=== PATIENT | male | born 1940 | race Caucasian/White ===

== ENCOUNTER 2019-12-08 09:39 | Observation (INO) | payer MEDICARE ==
--- NOTE | 2019-12-08 10:20 | CR ---
Chest: Portable view of the chest was obtained. Comparison: Prior chest x-ray of 06/09/13. Heart size is normal. Tortuous thoracic aorta is seen. Slight parenchymal density is noted within the right upper chest. Lungs otherwise are clear. Old healed right-sided rib fracture is noted. Scattered disc space narrowing and mild scoliosis is noted within the spine. Impression: 1. Slight parenchymal density within the right upper chest. This is most likely due to overlapping densities rather than actual parenchymal finding. 2. Other findings as noted above. Nothing acute is suspected. Diagnostic code #2 This report was dictated in MDT
--- NOTE | 2019-12-08 10:21 | EDM.PDOC ---
ED HPI GENERAL MEDICAL PROBLEM - General Chief Complaint: Syncope Time Seen by Provider: 12/08/19 10:23 Source of Information: Reports: Patient, Family History Limitations: Reports: No Limitations - History of Present Illness INITIAL COMMENTS - FREE TEXT/NARRATIVE: Patient is 79-year-old male with a history of dementia and "blood clots" presenting with chief complaint of syncopal episode. Patient is accompanied by who is the primary historian. Per the , the patient was walking in the house when he appeared to suddenly lose muscle tone. Patient fell forward and lightly struck his head against the wall. Patient's caught the patient to prevent a significant injury. This happened a second time although they were approaching the car. No major trauma on second episode. There is no noted seizure-like activity with any myoclonic jerks. The patient has not been sick at all recently. There is not been any vomiting or diarrhea. Patient is not prone to syncopal episodes. Patient not complaining of any chest pain or shortness of breath. Pmhx: Per chart and HPI Pshx: None Family Hx: noncontributory Smoking history? no Etoh use? none Drug use? none In addition to that documented in the HPI above, the additional ROS was obtained : Constitutional: Denies fevers or chills Eyes: Denies vision changes ENMT: Denies sore throat CV: Denies chest pain Resp: Denies SOB GI: Denies vomiting or diarrhea : Denies painful urination MSK: Per HPI Skin: Denies new rashes Neuro: Denies new numbness or tingling or weakness Endocrine: Denies unexpected weight loss Heme: Denies bleeding disorders I have reviewed the triage vital signs Const: Well nourished, well developed, appears stated age Eyes: Right eye with significant cataract, no conjunctival injection. Extraocular movements intact HENT: No evidence of head trauma. NCAT, Neck supple without meningismus CV: RRR, Warm, well-perfused extremities RESP: CTAB, Unlabored respiratory effort GI: soft, non-tender, non-distended, no masses MSK: Deformity with muscle wasting to right hand. No musculoskeletal injury noted Skin: Warm, dry. 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 Sensation and motor function of extremities intact. Psych: Appropriate mood and affect Assessment and plan: Patient is a 79-year-old male presenting with dementia and a syncopal episode x 2. Patient's ER course was unremarkable. Patient's vital signs within normal limits. Patient's neuro exam did not demonstrate any acute abnormalities. Patient's EKG demonstrated sinus rhythm with LVH but no ischemic changes. Patient had labs and CT performed. Differential diagnosis include cardiac syncope, seizure, vasovagal reaction, acute blood loss anemia from GI source. Patient's initial labs demonstrated elevation of his troponin at 0.077 however these down trended to 0.066 without any ischemic changes. Otherwise, there are no significant laboratory abnormalities. Patient CT of the head was negative for acute intracranial hemorrhage. Seizure is much less likely given the patient's age and history. Serial H&H did not demonstrate significant change. Cardiac syncope is much more likely given the elevation of his cardiac enzymes. No evidence of STEMI or NSTEMI. Patient was given aspirin. Cardiac monitoring did not demonstrate any acute changes. Per the patient's , the patient is DNR and DNI and I discussed with the her the benefits and risks of admission versus discharge. She prefer that the patient be observed to determine the etiology even if no specific intervention is done such as pacemaker, cardiac cath. She understands observation may not lead to any intervention. Patient is hemodynamically stable and will be placed in observation for further evaluation of syncope. - Related Data Allergies Allergy/AdvReac Type Severity Reaction Status Date / Time No Known Allergies Allergy Verified 12/08/19 09:48 Home Meds: Home Meds Enalapril Maleate 10 mg PO DAILY 08/21/14 [History] Memantine HCl [Namenda Xr] 28 mg PO DAILY 08/21/14 [History] Pantoprazole [ProTONIX Granules] 40 mg PO DAILY 08/21/14 [History] Warfarin [Coumadin] 4 mg PO DAILY 08/21/14 [History] traMADol [Ultram] 50 mg PO DAILY 08/21/14 [History] Warfarin [Coumadin] 6 mg PO DAILY 12/08/19 [History] Past Medical History HEENT History: Reports: None Cardiovascular History: Reports: Heart Murmur Respiratory History: Reports: None Gastrointestinal History: Reports: None Genitourinary History: Reports: None Musculoskeletal History: Reports: Arthritis Neurological History: Reports: None Psychiatric History: Reports: Dementia Endocrine/Metabolic History: Reports: None Hematologic History: Reports: None Immunologic History: Reports: None Oncologic (Cancer) History: Reports: None Dermatologic History: Reports: None - Infectious Disease History Infectious Disease History: Reports: None - Past Surgical History Head Surgeries/Procedures: Reports: None HEENT Surgical History: Reports: None Cardiovascular Surgical History: Reports: None Respiratory Surgical History: Reports: None GI Surgical History: Reports: None Male Surgical History: Reports: None Endocrine Surgical History: Reports: None Neurological Surgical History: Reports: None Musculoskeletal Surgical History: Reports: None Oncologic Surgical History: Reports: None Dermatological Surgical History: Reports: None Social & Family History - Family History Family Medical History: Noncontributory - Tobacco Use Smoking Status *Q: Former Smoker Used Tobacco, but Quit: Yes Month/Year Tobacco Last Used: 20 years - Caffeine Use Caffeine Use: Reports: None - Recreational Drug Use Recreational Drug Use: No ED ROS GENERAL - Review of Systems Review Of Systems: See Below - Physical Exam Exam: See Below Course - Vital Signs Last Recorded V/S: Last Vital Signs Temp 36.0 C L 12/08/19 09:41 Pulse 78 12/08/19 13:39 Resp 14 12/08/19 13:39 BP 123/70 12/08/19 13:39 Pulse Ox 95 12/08/19 13:39 - Orders/Labs/Meds Orders: Active Orders 24 hr Category Date Time Status Admission Status [Patient Status] [ADT] Stat ADT 12/08/19 14:04 Active EKG Documentation Completion [RC] STAT Care 12/08/19 09:44 Active EKG Documentation Completion [RC] STAT Care 12/08/19 10:48 Active Orthostatic Vital Signs [RC] ASDIRECTED Care 12/08/19 14:05 Active Sodium Chloride 0.9% [Normal Saline] 500 ml Med 12/08/19 11:30 Active IV .BOLUS Medication Orders Sodium Chloride (Normal Saline) 500 mls @ 1,000 mls/hr IV .BOLUS JOLENE Last Admin: 12/08/19 11:57 Dose: 1,000 mls/hr Labs: Laboratory Tests 12/08/19 12/08/19 12/08/19 Range/Units 09:52 09:52 09:52 WBC 5.12 (4.0-11.0) K/uL RBC 4.70 (4.50-5.90) M/uL Hgb 11.8 L (13.0-17.0) g/dL Hct 36.6 L (38.0-50.0) % MCV 77.9 L (80.0-98.0) fL MCH 25.1 L (27.0-32.0) pg MCHC 32.2 (31.0-37.0) g/dL RDW Std Deviation 47.2 (28.0-62.0) fl RDW Coeff of Omar 17 H (11.0-15.0) % Plt Count 142 L (150-400) K/uL MPV 9.90 (7.40-12.00) fL Neut % (Auto) 83.2 H (48.0-80.0) % Lymph % (Auto) 14.8 L (16.0-40.0) % Norton % (Auto) 1.8 (0.0-15.0) % Eos % (Auto) 0.0 (0.0-7.0) % Baso % (Auto) 0.2 (0.0-1.5) % Neut # (Auto) 4.3 (1.4-5.7) K/uL Lymph # (Auto) 0.8 (0.6-2.4) K/uL Norton # (Auto) 0.1 (0.0-0.8) K/uL Eos # (Auto) 0.0 (0.0-0.7) K/uL Baso # (Auto) 0.0 (0.0-0.1) K/uL Nucleated RBC % 0.0 /100WBC Nucleated RBCs # 0 K/uL INR 1.03 Sodium 133 L (136-148) mmol/L Potassium 4.0 (3.5-5.1) mmol/L Chloride 98 (98-107) mmol/L Carbon Dioxide 22.0 (21.0-32.0) mmol/L BUN 36 H (7.0-18.0) mg/dL Creatinine 2.3 H (0.8-1.3) mg/dL Est Cr Clr Drug Dosing 23.12 mL/min Estimated GFR (MDRD) 27.5 ml/min Glucose 144 H (74-106) mg/dL Calcium 8.7 (8.5-10.1) mg/dL Magnesium (1.8-2.4) mg/dL Total Bilirubin 0.5 (0.2-1.0) mg/dL AST 39 H (15-37) IU/L ALT 27 (14-63) IU/L Alkaline Phosphatase 98 (46-116) U/L Troponin I 0.077 H* (0.000-0.056) ng/mL Total Protein 7.2 (6.4-8.2) g/dL Albumin 2.8 L (3.4-5.0) g/dL Globulin 4.4 H (2.6-4.0) g/dL Albumin/Globulin Ratio 0.6 L (0.9-1.6) 12/08/19 12/08/19 12/08/19 Range/Units 09:52 12:00 12:00 WBC (4.0-11.0) K/uL RBC (4.50-5.90) M/uL Hgb 11.2 L (13.0-17.0) g/dL Hct 34.4 L (38.0-50.0) % MCV (80.0-98.0) fL MCH (27.0-32.0) pg MCHC (31.0-37.0) g/dL RDW Std Deviation (28.0-62.0) fl RDW Coeff of Omar (11.0-15.0) % Plt Count (150-400) K/uL MPV (7.40-12.00) fL Neut % (Auto) (48.0-80.0) % Lymph % (Auto) (16.0-40.0) % Norton % (Auto) (0.0-15.0) % Eos % (Auto) (0.0-7.0) % Baso % (Auto) (0.0-1.5) % Neut # (Auto) (1.4-5.7) K/uL Lymph # (Auto) (0.6-2.4) K/uL Norton # (Auto) (0.0-0.8) K/uL Eos # (Auto) (0.0-0.7) K/uL Baso # (Auto) (0.0-0.1) K/uL Nucleated RBC % /100WBC Nucleated RBCs # K/uL INR Sodium (136-148) mmol/L Potassium (3.5-5.1) mmol/L Chloride (98-107) mmol/L Carbon Dioxide (21.0-32.0) mmol/L BUN (7.0-18.0) mg/dL Creatinine (0.8-1.3) mg/dL Est Cr Clr Drug Dosing mL/min Estimated GFR (MDRD) ml/min Glucose (74-106) mg/dL Calcium (8.5-10.1) mg/dL Magnesium 2.0 (1.8-2.4) mg/dL Total Bilirubin (0.2-1.0) mg/dL AST (15-37) IU/L ALT (14-63) IU/L Alkaline Phosphatase (46-116) U/L Troponin I 0.066 H* (0.000-0.056) ng/mL Total Protein (6.4-8.2) g/dL Albumin (3.4-5.0) g/dL Globulin (2.6-4.0) g/dL Albumin/Globulin Ratio (0.9-1.6) Meds: Medications Generic Name Dose Route Start Last Admin Trade Name Freq PRN Reason Stop Dose Admin Sodium Chloride 500 mls @ 1,000 mls/hr 12/08/19 11:30 12/08/19 11:57 Normal Saline IV 1,000 mls/hr .BOLUS JOLENE Administration Departure - Departure Time of Disposition: 14:14 Disposition: Refer to Observation Clinical Impression: Syncope - Discharge Information Referrals: Vladimir Pfeiffer MD [Primary Care Provider] - Forms: ED Department Discharge Sepsis Event Note - Evaluation Sepsis Screening Result: No Definite Risk - Focused Exam Vital Signs: Vital Signs Temp Pulse Resp BP Pulse Ox 12/08/19 13:39 78 14 123/70 95 12/08/19 12:43 76 20 114/67 98 12/08/19 09:41 36.0 C L 81 18 121/69 96 Date Exam was Performed: 12/08/19 Time Exam was Performed: 14:09 - My Orders Last 24 Hours: My Active Orders 12/08/19 09:44 EKG Documentation Completion [RC] STAT 12/08/19 10:48 EKG Documentation Completion [RC] STAT 12/08/19 11:30 Sodium Chloride 0.9% [Normal Saline] 500 ml IV .BOLUS 12/08/19 14:04 Admission Status [Patient Status] [ADT] Stat 12/08/19 14:05 Orthostatic Vital Signs [RC] ASDIRECTED - Assessment/Plan Last 24 Hours: My Active Orders 12/08/19 09:44 EKG Documentation Completion [RC] STAT 12/08/19 10:48 EKG Documentation Completion [RC] STAT 12/08/19 11:30 Sodium Chloride 0.9% [Normal Saline] 500 ml IV .BOLUS 12/08/19 14:04 Admission Status [Patient Status] [ADT] Stat 12/08/19 14:05 Orthostatic Vital Signs [RC] ASDIRECTED
--- NOTE | 2019-12-08 11:14 | CT ---
Head CT Technique: Multiple axial sections through the brain were obtained. Intravenous contrast was not utilized. Comparison: Prior head CT study of 06/13/13. Findings: Ventricles along with basal cisterns and sulci over the convexities are moderately prominent. Diffuse diminished density is noted within the periventricular and subcortical white matter which is compatible with small vessel ischemic demyelination change. Basal ganglia calcification is noted. No evidence of intracranial hemorrhage. No midline shift or mass-effect is seen. Atherosclerotic calcification is seen within the vertebral vessels and within the carotid siphon. Mucosal thickening seen within both maxillary, ethmoid and frontal sinuses. No acute calvarial abnormality is appreciated. Impression: 1. Senescent change as noted above. Findings have progressed from previous exam. 2. Chronic appearing paranasal sinus findings. 3. No acute calvarial abnormality is appreciated. 4. No acute intracranial abnormality is identified. Diagnostic code #2 This report was dictated in MDT
[2019-12-08] MEDS ORDERED: Sodium Chloride 0.9% 500 ML IV SCH (11:30)
[2019-12-08] MEDS ORDERED: Acetaminophen 325 MG Tab PO PRN (15:00)
[2019-12-08] MEDS ORDERED: Ondansetron 4 MG/2 ML SDV IVPUSH PRN (15:00)
[2019-12-08] MEDS ORDERED: Sodium Chloride 0.9% 500 ML IV STA (15:03)
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
[2019-12-08] MEDS ORDERED: Warfarin 2 MG Tab PO SCH (15:30)
[2019-12-09 05:43] LABS: CARBON DIOXIDE,CO2 21.6 mmol/L (21.0-32.0); POTASSIUM,K 4.7 mmol/L (3.5-5.1)
[2019-12-09] MEDS: Pantoprazole 40 MG Tab.CR PO SCH (06:42)
[2019-12-09] MEDS ORDERED: Patient's Own Medication 1 Each PO SCH (09:00)
--- NOTE | 2019-12-09 10:08 | PCM.PN ---
- General Info Date of Service: 12/09/19 Admission Dx/Problem (Free Text): Admission Diagnosis/Problem Admission Diagnosis/Problem Syncope Subjective Update: Reports feeling better today. No chest pain or SOB. No concerns. Functional Status: Reports: Pain Controlled, Tolerating Diet, Ambulating, Urinating - Review of Systems General: Reports: No Symptoms. Denies: Weakness, Fatigue Pulmonary: Reports: Cough (denies cough, but is coughing on assessment). Denies : Shortness of Breath Cardiovascular: Reports: No Symptoms. Denies: Chest Pain Gastrointestinal: Reports: No Symptoms. Denies: Abdominal Pain, Nausea, Vomiting Musculoskeletal: Reports: No Symptoms Skin: Reports: No Symptoms Neurological: Reports: No Symptoms Psychiatric: Reports: No Symptoms - Patient Data Vitals - Most Recent: Last Vital Signs Temp 98.2 F 12/09/19 08:00 Pulse 74 12/09/19 08:00 Resp 20 12/09/19 08:00 BP 144/71 H 12/09/19 08:00 Pulse Ox 95 12/09/19 08:00 Orthostatic Blood Pressure [ 121/71 Standing] Orthostatic Blood Pressure [ 126/68 Sitting] Orthostatic Blood Pressure [ 136/65 Supine] Weight - Most Recent: 65.771 kg I&O - Last 24 Hours: Intake & Output 12/08/19 12/09/19 12/09/19 22:59 06:59 14:59 Intake Total 540 240 Output Total 600 300 Balance -60 -60 Lab Results Last 24 Hours: Laboratory Results - last 24 hr 12/08/19 12/08/19 12/08/19 Range/Units 09:52 09:52 09:52 WBC (4.0-11.0) K/uL RBC (4.50-5.90) M/uL Hgb (13.0-17.0) g/dL Hct (38.0-50.0) % MCV (80.0-98.0) fL MCH (27.0-32.0) pg MCHC (31.0-37.0) g/dL RDW Std Deviation (28.0-62.0) fl RDW Coeff of Omar (11.0-15.0) % Plt Count (150-400) K/uL MPV (7.40-12.00) fL Neut % (Auto) (48.0-80.0) % Lymph % (Auto) (16.0-40.0) % [place] % (Auto) (0.0-15.0) % Eos % (Auto) (0.0-7.0) % Baso % (Auto) (0.0-1.5) % Neut # (Auto) (1.4-5.7) K/uL Lymph # (Auto) (0.6-2.4) K/uL [place] # (Auto) (0.0-0.8) K/uL Eos # (Auto) (0.0-0.7) K/uL Baso # (Auto) (0.0-0.1) K/uL Nucleated RBC % /100WBC Nucleated RBCs # K/uL INR 1.03 Sodium 133 L (136-148) mmol/L Potassium 4.0 (3.5-5.1) mmol/L Chloride 98 (98-107) mmol/L Carbon Dioxide 22.0 (21.0-32.0) mmol/L BUN 36 H (7.0-18.0) mg/dL Creatinine 2.3 H (0.8-1.3) mg/dL Est Cr Clr Drug Dosing 23.12 mL/min Estimated GFR (MDRD) 27.5 ml/min Glucose 144 H (74-106) mg/dL Calcium 8.7 (8.5-10.1) mg/dL Magnesium 2.0 (1.8-2.4) mg/dL Total Bilirubin 0.5 (0.2-1.0) mg/dL AST 39 H (15-37) IU/L ALT 27 (14-63) IU/L Alkaline Phosphatase 98 (46-116) U/L Troponin I 0.077 H* (0.000-0.056) ng/mL Total Protein 7.2 (6.4-8.2) g/dL Albumin 2.8 L (3.4-5.0) g/dL Globulin 4.4 H (2.6-4.0) g/dL Albumin/Globulin Ratio 0.6 L (0.9-1.6) Urine Color Urine Appearance Urine pH (5.0-8.0) Ur Specific Gordon (1.001-1.035) Urine Protein (NEGATIVE) mg/dL Urine Glucose (UA) (NEGATIVE) mg/dL Urine Ketones (NEGATIVE) mg/dL Urine Occult Blood (NEGATIVE) Urine Nitrite (NEGATIVE) Urine Bilirubin (NEGATIVE) Urine Urobilinogen (<2.0) EU/dL Ur Leukocyte Esterase (NEGATIVE) U Hyaline Cast (Auto) (0-2/LPF) Urine RBC (0-2/HPF) Urine WBC (0-5/HPF) Ur Epithelial Cells (NONE-FEW) Urine Bacteria (NEGATIVE) Urine Mucus (NONE-MOD) 12/08/19 12/08/19 12/08/19 Range/Units 12:00 12:00 15:50 WBC (4.0-11.0) K/uL RBC (4.50-5.90) M/uL Hgb 11.2 L (13.0-17.0) g/dL Hct 34.4 L (38.0-50.0) % MCV (80.0-98.0) fL MCH (27.0-32.0) pg MCHC (31.0-37.0) g/dL RDW Std Deviation (28.0-62.0) fl RDW Coeff of Omar (11.0-15.0) % Plt Count (150-400) K/uL MPV (7.40-12.00) fL Neut % (Auto) (48.0-80.0) % Lymph % (Auto) (16.0-40.0) % [place] % (Auto) (0.0-15.0) % Eos % (Auto) (0.0-7.0) % Baso % (Auto) (0.0-1.5) % Neut # (Auto) (1.4-5.7) K/uL Lymph # (Auto) (0.6-2.4) K/uL [place] # (Auto) (0.0-0.8) K/uL Eos # (Auto) (0.0-0.7) K/uL Baso # (Auto) (0.0-0.1) K/uL Nucleated RBC % /100WBC Nucleated RBCs # K/uL INR Sodium (136-148) mmol/L Potassium (3.5-5.1) mmol/L Chloride (98-107) mmol/L Carbon Dioxide (21.0-32.0) mmol/L BUN (7.0-18.0) mg/dL Creatinine (0.8-1.3) mg/dL Est Cr Clr Drug Dosing mL/min Estimated GFR (MDRD) ml/min Glucose (74-106) mg/dL Calcium (8.5-10.1) mg/dL Magnesium (1.8-2.4) mg/dL Total Bilirubin (0.2-1.0) mg/dL AST (15-37) IU/L ALT (14-63) IU/L Alkaline Phosphatase (46-116) U/L Troponin I 0.066 H* (0.000-0.056) ng/mL Total Protein (6.4-8.2) g/dL Albumin (3.4-5.0) g/dL Globulin (2.6-4.0) g/dL Albumin/Globulin Ratio (0.9-1.6) Urine Color YELLOW Urine Appearance HAZY Urine pH 5.5 (5.0-8.0) Ur Specific Gordon >= 1.030 (1.001-1.035) Urine Protein 30 H (NEGATIVE) mg/dL Urine Glucose (UA) NEGATIVE (NEGATIVE) mg/dL Urine Ketones NEGATIVE (NEGATIVE) mg/dL Urine Occult Blood TRACE-INTACT H (NEGATIVE) Urine Nitrite NEGATIVE (NEGATIVE) Urine Bilirubin NEGATIVE (NEGATIVE) Urine Urobilinogen 0.2 (<2.0) EU/dL Ur Leukocyte Esterase NEGATIVE (NEGATIVE) U Hyaline Cast (Auto) 2-4 (0-2/LPF) Urine RBC 0-2 (0-2/HPF) Urine WBC 1-3 (0-5/HPF) Ur Epithelial Cells FEW (NONE-FEW) Urine Bacteria 1+ H (NEGATIVE) Urine Mucus MODERATE (NONE-MOD) 12/08/19 12/09/19 12/09/19 Range/Units 18:18 05:23 05:23 WBC 4.19 (4.0-11.0) K/uL RBC 4.24 L (4.50-5.90) M/uL Hgb 10.4 L (13.0-17.0) g/dL Hct 32.9 L (38.0-50.0) % MCV 77.6 L (80.0-98.0) fL MCH 24.5 L (27.0-32.0) pg MCHC 31.6 (31.0-37.0) g/dL RDW Std Deviation 47.6 (28.0-62.0) fl RDW Coeff of Omar 17 H (11.0-15.0) % Plt Count 133 L (150-400) K/uL MPV 9.60 (7.40-12.00) fL Neut % (Auto) 75.9 (48.0-80.0) % Lymph % (Auto) 18.9 (16.0-40.0) % [place] % (Auto) 5.0 (0.0-15.0) % Eos % (Auto) 0.0 (0.0-7.0) % Baso % (Auto) 0.2 (0.0-1.5) % Neut # (Auto) 3.2 (1.4-5.7) K/uL Lymph # (Auto) 0.8 (0.6-2.4) K/uL [place] # (Auto) 0.2 (0.0-0.8) K/uL Eos # (Auto) 0.0 (0.0-0.7) K/uL Baso # (Auto) 0.0 (0.0-0.1) K/uL Nucleated RBC % 0.0 /100WBC Nucleated RBCs # 0 K/uL INR Sodium 134 L (136-148) mmol/L Potassium 4.7 (3.5-5.1) mmol/L Chloride 102 (98-107) mmol/L Carbon Dioxide 21.6 (21.0-32.0) mmol/L BUN 36 H (7.0-18.0) mg/dL Creatinine 2.0 H (0.8-1.3) mg/dL Est Cr Clr Drug Dosing 26.58 mL/min Estimated GFR (MDRD) 32.3 ml/min Glucose 99 (74-106) mg/dL Calcium 7.8 L (8.5-10.1) mg/dL Magnesium 1.8 (1.8-2.4) mg/dL Total Bilirubin (0.2-1.0) mg/dL AST (15-37) IU/L ALT (14-63) IU/L Alkaline Phosphatase (46-116) U/L Troponin I 0.071 H* (0.000-0.056) ng/mL Total Protein (6.4-8.2) g/dL Albumin (3.4-5.0) g/dL Globulin (2.6-4.0) g/dL Albumin/Globulin Ratio (0.9-1.6) Urine Color Urine Appearance Urine pH (5.0-8.0) Ur Specific Gordon (1.001-1.035) Urine Protein (NEGATIVE) mg/dL Urine Glucose (UA) (NEGATIVE) mg/dL Urine Ketones (NEGATIVE) mg/dL Urine Occult Blood (NEGATIVE) Urine Nitrite (NEGATIVE) Urine Bilirubin (NEGATIVE) Urine Urobilinogen (<2.0) EU/dL Ur Leukocyte Esterase (NEGATIVE) U Hyaline Cast (Auto) (0-2/LPF) Urine RBC (0-2/HPF) Urine WBC (0-5/HPF) Ur Epithelial Cells (NONE-FEW) Urine Bacteria (NEGATIVE) Urine Mucus (NONE-MOD) 12/09/19 Range/Units 05:23 WBC (4.0-11.0) K/uL RBC (4.50-5.90) M/uL Hgb (13.0-17.0) g/dL Hct (38.0-50.0) % MCV (80.0-98.0) fL MCH (27.0-32.0) pg MCHC (31.0-37.0) g/dL RDW Std Deviation (28.0-62.0) fl RDW Coeff of Omar (11.0-15.0) % Plt Count (150-400) K/uL MPV (7.40-12.00) fL Neut % (Auto) (48.0-80.0) % Lymph % (Auto) (16.0-40.0) % [place] % (Auto) (0.0-15.0) % Eos % (Auto) (0.0-7.0) % Baso % (Auto) (0.0-1.5) % Neut # (Auto) (1.4-5.7) K/uL Lymph # (Auto) (0.6-2.4) K/uL [place] # (Auto) (0.0-0.8) K/uL Eos # (Auto) (0.0-0.7) K/uL Baso # (Auto) (0.0-0.1) K/uL Nucleated RBC % /100WBC Nucleated RBCs # K/uL INR 1.12 Sodium (136-148) mmol/L Potassium (3.5-5.1) mmol/L Chloride (98-107) mmol/L Carbon Dioxide (21.0-32.0) mmol/L BUN (7.0-18.0) mg/dL Creatinine (0.8-1.3) mg/dL Est Cr Clr Drug Dosing mL/min Estimated GFR (MDRD) ml/min Glucose (74-106) mg/dL Calcium (8.5-10.1) mg/dL Magnesium (1.8-2.4) mg/dL Total Bilirubin (0.2-1.0) mg/dL AST (15-37) IU/L ALT (14-63) IU/L Alkaline Phosphatase (46-116) U/L Troponin I (0.000-0.056) ng/mL Total Protein (6.4-8.2) g/dL Albumin (3.4-5.0) g/dL Globulin (2.6-4.0) g/dL Albumin/Globulin Ratio (0.9-1.6) Urine Color Urine Appearance Urine pH (5.0-8.0) Ur Specific Gordon (1.001-1.035) Urine Protein (NEGATIVE) mg/dL Urine Glucose (UA) (NEGATIVE) mg/dL Urine Ketones (NEGATIVE) mg/dL Urine Occult Blood (NEGATIVE) Urine Nitrite (NEGATIVE) Urine Bilirubin (NEGATIVE) Urine Urobilinogen (<2.0) EU/dL Ur Leukocyte Esterase (NEGATIVE) U Hyaline Cast (Auto) (0-2/LPF) Urine RBC (0-2/HPF) Urine WBC (0-5/HPF) Ur Epithelial Cells (NONE-FEW) Urine Bacteria (NEGATIVE) Urine Mucus (NONE-MOD) Med Orders - Current: Current Medications Acetaminophen (Tylenol) 650 mg PO Q4H PRN PRN Reason: Pain (Mild 1-3)/fever Ondansetron HCl (Zofran) 4 mg IVPUSH Q4H PRN PRN Reason: Nausea Last Admin: 12/08/19 17:44 Dose: 4 mg Pantoprazole Sodium (Protonix) 40 mg PO DAILY@0700 JOLENE Last Admin: 12/09/19 06:42 Dose: 40 mg Warfarin Sodium (Coumadin Ask) 1 each PO DAILY@1400 JOLENE Warfarin Sodium (Coumadin) 6 mg PO DAILY@1400 JOLENE Stop: 12/09/19 23:59 Discontinued Medications Sodium Chloride (Normal Saline) 500 mls @ 1,000 mls/hr IV .BOLUS JOLENE Last Admin: 12/08/19 11:57 Dose: 1,000 mls/hr Sodium Chloride (Normal Saline) 500 mls @ 100 mls/hr IV NOW STA Stop: 12/08/19 20:02 Last Admin: 12/08/19 15:42 Dose: 100 mls/hr Patient Own Medication (Ptom) 1 each PO DAILY [facility] Namzaric 28-10 Mg (Capsule) 1 each PO BEDTIME JOLENE - Exam Quality Assessment: DVT Prophylaxis. No: Supplemental Oxygen General: Alert, Oriented, Cooperative, No Acute Distress, Other (intermittent confusion with dementia is normal) Lungs: Clear to Auscultation, Normal Respiratory Effort Cardiovascular: Regular Rate, Regular Rhythm, Murmurs GI/Abdominal Exam: Normal Bowel Sounds, Soft, Non-Tender Extremities: Normal Inspection, Normal Range of Motion, Non-Tender, No Pedal Edema Neurological: No New Focal Deficit Psy/Mental Status: Alert, Normal Affect, Normal Mood Sepsis Event Note - Evaluation Sepsis Screening Result: No Definite Risk - Focused Exam Vital Signs: Vital Signs Temp Pulse Resp BP Pulse Ox 12/09/19 08:00 98.2 F 74 20 144/71 H 95 12/09/19 04:47 96.8 F L 81 16 136/74 95 12/09/19 00:15 96.8 F L 104 H 18 138/88 94 L Date Exam was Performed: 12/09/19 Time Exam was Performed: 10:39 - Problem List & Annotations (1) Orthostatic hypotension SNOMED Code(s): 96091045 Code(s): I95.1 - ORTHOSTATIC HYPOTENSION Status: Acute Current Visit: Yes (2) Syncope SNOMED Code(s): 375122033 Code(s): R55 - SYNCOPE AND COLLAPSE Status: Acute Current Visit: Yes Qualifiers: Encounter type: initial encounter (3) Aortic stenosis, moderate SNOMED Code(s): 32783170 Code(s): I35.0 - NONRHEUMATIC AORTIC (VALVE) STENOSIS Status: Chronic Current Visit: Yes (4) Diastolic CHF, chronic SNOMED Code(s): 721032646, 308428609 Code(s): I50.32 - CHRONIC DIASTOLIC (CONGESTIVE) HEART FAILURE Status: Chronic Current Visit: Yes (5) HTN (hypertension) SNOMED Code(s): 32609621 Code(s): I10 - ESSENTIAL (PRIMARY) HYPERTENSION Status: Chronic Current Visit: Yes (6) Dementia SNOMED Code(s): 23777069 Code(s): F03.90 - UNSPECIFIED DEMENTIA WITHOUT BEHAVIORAL DISTURBANCE Status: Chronic Current Visit: Yes (7) Afib SNOMED Code(s): 92075217 Code(s): I48.91 - UNSPECIFIED ATRIAL FIBRILLATION Status: Chronic Current Visit: Yes Qualifiers: Atrial fibrillation type: paroxysmal Qualified Code(s): I48.0 - Paroxysmal atrial fibrillation (8) Chronic anticoagulation SNOMED Code(s): 048445486 Code(s): Z79.01 - SEAM TAPER MACHINE (CURRENT) USE OF ANTICOAGULANTS Status: Chronic Current Visit: Yes (9) Arthritis SNOMED Code(s): 4675024 Code(s): M19.90 - UNSPECIFIED OSTEOARTHRITIS, UNSPECIFIED SITE Status: Chronic Current Visit: Yes (10) GERD (gastroesophageal reflux disease) SNOMED Code(s): 995101004 Code(s): K21.9 - GASTRO-ESOPHAGEAL REFLUX DISEASE WITHOUT ESOPHAGITIS Status: Chronic Current Visit: Yes Qualifiers: Esophagitis presence: esophagitis presence not specified Qualified Code(s) : K21.9 - Gastro-esophageal reflux disease without esophagitis - Problem List Review Problem List Initiated/Reviewed/Updated: Yes - My Orders Last 24 Hours: My Active Orders 12/08/19 14:58 Telemetry Monitoring [Cardiac Monitoring] [RC] Q8H 12/08/19 15:00 Oxygen Therapy [RC] PRN Up With Assistance [RC] ASDIRECTED VTE/DVT Education [RC] PER UNIT ROUTINE Vital Signs [RC] Q4H Acetaminophen [Tylenol] 650 mg PO Q4H PRN Ondansetron [Zofran] 4 mg IVPUSH Q4H PRN Resuscitation Status Routine 12/08/19 15:03 Bladder Scan [RC] ASDIRECTED 12/08/19 Lunch Heart Healthy Diet [DIET] 12/09/19 07:00 Pantoprazole [ProTONIX] 40 mg PO DAILY@0700 12/09/19 07:57 Orthostatic Vital Signs [RC] ONETIME 12/09/19 08:00 Consult to Physical Therapy [PT Evaluation and Treatment] [CONS] Routine 12/09/19 14:00 Warfarin Dosing [Coumadin Ask] 1 each PO DAILY@1400 12/09/19 14:56 Echo Comp wo Cont [US] Urgent 12/10/19 05:11 INR,PT,PROTHROMBIN TIME [COAG] AM - Plan Plan:: This 79 year old male admitted with syncope, GARTH on CKD, mild dehydration 1. Syncope - Continues to have Orthostatic hypotension this am with PT - Labwork improved. - Obtain ECHO Pending - Monitor on telemetry, consider possible syncope from afib as well. paroxysmal and currently SR. - Consult PT to evaluate and treat, recommends further eval tomorrow. Would recommended franko walker - VERY HIGH FALL RISK - Extensive medication review with MD and PharmD. Will HOLD Enalapril due to Orthostatic hypotension. Will also decrease dose of Namzaric, as Donezepril can cause syncope as well. Discussed these changes with Aleah, , over the phone. She is agreeable to changes, but would not want Namzaric stopped at this time. Will decrease dose to renally dosed and follow up with PCP regarding BP 2. Elevated troponin - No acute ACS, likely related to CKD. 3. GARTH on CKD -Improved and near baseline now. Monitor - Hold ANNE as mentioned above 4. Afib/anticoagulation - Monitor on telemetry - restart Coumadin, pharmacy to dose - Monitor INR in am. 5. HTN/GERD - Hold ANNE for now, monitor BP - Restart Protonix for GERD VTE prophylaxis: Coumadin Code status: Discussed with Aleah and patient. FULL CODE for now. Denies wanting life sustaining treatment such as prolonged ventilation. Consults: Physical therapy. Dispo: 1-2 days pending improvement.
[2019-12-09] MEDS ORDERED: Warfarin 2 MG Tab PO SCH (14:00)
[2019-12-09] MEDS ORDERED: NAMZARIC PO SCH (21:00)
[2019-12-10 05:54] LABS: CARBON DIOXIDE,CO2 23.8 mmol/L (21.0-32.0); POTASSIUM,K 4.6 mmol/L (3.5-5.1)
[2019-12-10] MEDS: Pantoprazole 40 MG Tab.CR PO SCH (06:21)
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
[2019-12-10] MEDS ORDERED: Warfarin 2 MG Tab PO SCH (14:00)
--- NOTE | 2019-12-11 16:22 | ECHO ---
EXAM DATE: 12/08/19 PATIENT'S AGE: 79 The echocardiogram report can be seen in this patient's EMR (Electronic Medical Record) in the REPORTS section. The report has also been scanned into PACS. JULIO
== END 2019-12-10 15:28 | disposition home or self-care (01) ==
LOC: MW.ED 09:39 → MW.MS 14:19
PROVIDERS: ADMIT Internal Medicine; ATTEND Internal Medicine
DX: I95.1 Orthostatic hypotension (principal); I35.0 Nonrheumatic aortic (valve) stenosis; I13.0 Hypertensive heart and chronic kidney disease with heart failure and stage 1 through stage 4 chronic kidney disease, or unspecified chronic kidney disease; I50.32 Chronic diastolic (congestive) heart failure; F03.90 Unspecified dementia, unspecified severity, without behavioral disturbance, psychotic disturbance, mood disturbance, and anxiety; I48.0 Paroxysmal atrial fibrillation; N17.9 Acute kidney failure, unspecified; R74.8 Abnormal levels of other serum enzymes; K21.9 Gastro-esophageal reflux disease without esophagitis; R26.81 Unsteadiness on feet; R26.89 Other abnormalities of gait and mobility; M19.90 Unspecified osteoarthritis, unspecified site; J44.9 Chronic obstructive pulmonary disease, unspecified; Z79.01 Long term (current) use of anticoagulants; Z79.899 Other long term (current) drug therapy; Z87.891 Personal history of nicotine dependence; W22.01XA Walked into wall, initial encounter; Y93.9 Activity, unspecified; Y92.009 Unspecified place in unspecified non-institutional (private) residence as the place of occurrence of the external cause
CPT/HCPCS: 36415; 51798; 70450; 71045; 80048; 80053; 81001; 83735; 84484; 85014; 85018; 85025; 85610; 93005; 93306; 96361; 96374; 97110; 97162; 99285; A9270; J2405; J7040; 99284

== ENCOUNTER 2020-06-01 22:46 | Emergency (ER) | payer MEDICARE, OTHER ==
--- NOTE | 2020-06-01 23:03 | EDM.PDOC ---
ED HPI GENERAL MEDICAL PROBLEM - General Chief Complaint: General Stated Complaint: BREATHING PROBLEM Time Seen by Provider: 06/01/20 22:49 - History of Present Illness INITIAL COMMENTS - FREE TEXT/NARRATIVE: History of present illness: [] Patient with a history of Alzheimer's was brought by the . He had been resting in a recliner almost upright. He began to choke and she felt like he was unable to speak. Gradually he came back to his baseline. During the time he was choking he had fluids in his throat. He has not eaten since 6 PM. Review of systems: As per history of present illness and below otherwise all systems reviewed and negative. Past medical history: As per history of present illness and as reviewed below otherwise noncontributory. Surgical history: As per history of present illness and as reviewed below otherwise noncontributory. Social history: No reported history of drug or alcohol abuse. Family history: As per history of present illness and as reviewed below otherwise noncontributory. Physical exam: Constitutional - well developed, well-nourished and in no acute distress HEENT -patient takes water he chokes on it in the back of his throat and it affects his voice until he can clear it. He has difficulty clearing it and cannot swallow. Normocephalic, no evidence of trauma - external nose and mouth normal - no mass in neck and no JVD - mucosae moist EYES - full EOM, PERRL, no icterus - no evidence of inflammation, injection, or drainage Respiratory - no respiratory distress, equal bilateral expansion, lungs clear to auscultation and no abnormal lung sounds Cardiovascular - Regular Rhythm with S1 and S2 appreciated and no murmur, gallop or rub. GI - abdomen soft without distension or organomegaly - normal bowel sounds - no guard or rebound Musculoskeletal no gross deformity of long bones or joints - no tenderness, swelling or edema Neurologic - Alert and oriented times four - CN II-XII grossly intact - motor sensory and coordination symmetrically normal Psychiatric - appropriate mood and affect with normal thought content Hematologic - No petechiae or purpura - mucosa appropriate color and sclera not pale - normal nail bed color and refill Integument - no rash or evidence of trauma - normal turgor Diagnostics: [] Therapeutics: [] Impression: [] Plan: [] Definitive disposition and diagnosis as appropriate pending reevaluation and review of above. - Related Data Allergies Allergy/AdvReac Type Severity Reaction Status Date / Time No Known Allergies Allergy Verified 06/01/20 23:05 Home Meds: Home Meds Pantoprazole [ProTONIX Granules] 40 mg PO DAILY 08/21/14 [History] traMADol [Ultram] 50 mg PO BID 08/21/14 [History] Warfarin [Coumadin] 6 mg PO MOWEFR 12/08/19 [History] Warfarin [Coumadin] 4 mg PO SUTUTHSA 12/09/19 [History] Enalapril [Vasotec] 5 mg PO DAILY #30 tab 12/10/19 [Rx] Memantine HCl/Donepezil HCl [Namzaric 14 mg-10 mg Capsule] 1 each PO DAILY #30 cap.spr.24 12/10/19 [Rx] Past Medical History HEENT History: Reports: None Cardiovascular History: Reports: Afib, Heart Failure, Heart Murmur, Hypertension, Syncope, Other (See Below) (aortic stenosis) Respiratory History: Reports: None. Denies: Asthma, COPD Gastrointestinal History: Reports: GERD Genitourinary History: Reports: None, Chronic Renal Insuffiency Musculoskeletal History: Reports: Arthritis Neurological History: Reports: None. Denies: CVA, TIA Psychiatric History: Reports: Dementia Endocrine/Metabolic History: Reports: None. Denies: Diabetes, Type II Hematologic History: Reports: None Immunologic History: Reports: None Oncologic (Cancer) History: Reports: None Dermatologic History: Reports: None - Infectious Disease History Infectious Disease History: Reports: None - Past Surgical History Head Surgeries/Procedures: Reports: None HEENT Surgical History: Reports: None Cardiovascular Surgical History: Reports: None Respiratory Surgical History: Reports: None GI Surgical History: Reports: None Male Surgical History: Reports: None Endocrine Surgical History: Reports: None Neurological Surgical History: Reports: None Musculoskeletal Surgical History: Reports: None Oncologic Surgical History: Reports: None Dermatological Surgical History: Reports: None Social & Family History - Family History Family Medical History: Noncontributory - Caffeine Use Caffeine Use: Reports: None - Living Situation & Occupation Living situation: Reports: Occupation: Retired ED ROS GENERAL - Review of Systems Review Of Systems: Comprehensive ROS is negative, except as noted in HPI. ED EXAM, GENERAL - Physical Exam Exam: See Below Free Text/Narrative:: Physical exam as in the HPI Course - Vital Signs Text/Narrative:: Did not change in the department. [facility] did not have a bad nor did [facility]. I called Alfredo and Dr. Sanchez and she accepted the patient at 12 AM. Last Recorded V/S: Last Vital Signs Temp 97.2 F 06/01/20 23:02 Pulse 102 H 06/02/20 00:56 Resp 18 06/02/20 00:56 BP 136/78 06/02/20 00:56 Pulse Ox 94 L 06/02/20 00:56 - Orders/Labs/Meds Orders: Active Orders 24 hr Category Date Time Status Communication Order [RC] STAT Care 06/01/20 23:01 Active EKG Documentation Completion [RC] AM Care 06/01/20 23:09 Active CORONAVIRUS COVID-19 PCR PHL Stat Lab 06/01/20 23:48 Ordered Sodium Chloride 0.9% [Saline Flush] Med 06/01/20 23:09 Active 10 ml FLUSH ASDIRECTED PRN Sodium Chloride 0.9% [Saline Flush] Med 06/01/20 23:09 Active 2.5 ml FLUSH ASDIRECTED PRN Saline Lock Insert [OM.PC] Stat Oth 06/01/20 23:09 Ordered Medication Orders Sodium Chloride (Saline Flush) 10 ml FLUSH ASDIRECTED PRN PRN Reason: Keep Vein Open Sodium Chloride (Saline Flush) 2.5 ml FLUSH ASDIRECTED PRN PRN Reason: Keep Vein Open Labs: Laboratory Tests 06/01/20 06/01/20 06/01/20 Range/Units 22:54 23:16 23:38 WBC 8.93 (4.0-11.0) K/uL RBC 3.62 L (4.50-5.90) M/uL Hgb 8.9 L (13.0-17.0) g/dL Hct 27.5 L (38.0-50.0) % MCV 76.0 L (80.0-98.0) fL MCH 24.6 L (27.0-32.0) pg MCHC 32.4 (31.0-37.0) g/dL RDW Std Deviation 48.4 (28.0-62.0) fl RDW Coeff of Omar 18 H (11.0-15.0) % Plt Count 250 (150-400) K/uL MPV 9.10 (7.40-12.00) fL Neut % (Auto) 85.1 H (48.0-80.0) % Lymph % (Auto) 8.8 L (16.0-40.0) % [place] % (Auto) 6.0 (0.0-15.0) % Eos % (Auto) 0.0 (0.0-7.0) % Baso % (Auto) 0.1 (0.0-1.5) % Neut # (Auto) 7.6 H (1.4-5.7) K/uL Lymph # (Auto) 0.8 (0.6-2.4) K/uL [place] # (Auto) 0.5 (0.0-0.8) K/uL Eos # (Auto) 0.0 (0.0-0.7) K/uL Baso # (Auto) 0.0 (0.0-0.1) K/uL Nucleated RBC % 0.0 /100WBC Nucleated RBCs # 0 K/uL INR Sodium 131 L (136-148) mmol/L Potassium 4.5 (3.5-5.1) mmol/L Chloride 99 (98-107) mmol/L Carbon Dioxide 19.6 L (21.0-32.0) mmol/L BUN 31 H (7.0-18.0) mg/dL Creatinine 2.2 H (0.8-1.3) mg/dL Est Cr Clr Drug Dosing 28.52 mL/min Estimated GFR (MDRD) 28.9 ml/min Glucose 115 H (74-106) mg/dL POC Glucose 118 H (60-110) mg/dL Calcium 8.6 (8.5-10.1) mg/dL Total Bilirubin 0.8 (0.2-1.0) mg/dL AST 37 (15-37) IU/L ALT 29 (14-63) IU/L Alkaline Phosphatase 108 (46-116) U/L Troponin I 0.091 H* (0.000-0.056) ng/mL Total Protein 7.3 (6.4-8.2) g/dL Albumin 3.0 L (3.4-5.0) g/dL Globulin 4.3 H (2.6-4.0) g/dL Albumin/Globulin Ratio 0.7 L (0.9-1.6) SARS CoV-2 RNA Rapid ROSE MARIE (NEGATIVE) 06/01/20 06/01/20 Range/Units 23:38 23:57 WBC (4.0-11.0) K/uL RBC (4.50-5.90) M/uL Hgb (13.0-17.0) g/dL Hct (38.0-50.0) % MCV (80.0-98.0) fL MCH (27.0-32.0) pg MCHC (31.0-37.0) g/dL RDW Std Deviation (28.0-62.0) fl RDW Coeff of Omar (11.0-15.0) % Plt Count (150-400) K/uL MPV (7.40-12.00) fL Neut % (Auto) (48.0-80.0) % Lymph % (Auto) (16.0-40.0) % [place] % (Auto) (0.0-15.0) % Eos % (Auto) (0.0-7.0) % Baso % (Auto) (0.0-1.5) % Neut # (Auto) (1.4-5.7) K/uL Lymph # (Auto) (0.6-2.4) K/uL [place] # (Auto) (0.0-0.8) K/uL Eos # (Auto) (0.0-0.7) K/uL Baso # (Auto) (0.0-0.1) K/uL Nucleated RBC % /100WBC Nucleated RBCs # K/uL INR 1.93 Sodium (136-148) mmol/L Potassium (3.5-5.1) mmol/L Chloride (98-107) mmol/L Carbon Dioxide (21.0-32.0) mmol/L BUN (7.0-18.0) mg/dL Creatinine (0.8-1.3) mg/dL Est Cr Clr Drug Dosing mL/min Estimated GFR (MDRD) ml/min Glucose (74-106) mg/dL POC Glucose (60-110) mg/dL Calcium (8.5-10.1) mg/dL Total Bilirubin (0.2-1.0) mg/dL AST (15-37) IU/L ALT (14-63) IU/L Alkaline Phosphatase (46-116) U/L Troponin I (0.000-0.056) ng/mL Total Protein (6.4-8.2) g/dL Albumin (3.4-5.0) g/dL Globulin (2.6-4.0) g/dL Albumin/Globulin Ratio (0.9-1.6) SARS CoV-2 RNA Rapid ROSE MARIE NEGATIVE (NEGATIVE) Meds: Medications Generic Name Dose Route Start Last Admin Trade Name Freq PRN Reason Stop Dose Admin Sodium Chloride 10 ml 06/01/20 23:09 Saline Flush FLUSH ASDIRECTED PRN Keep Vein Open Sodium Chloride 2.5 ml 06/01/20 23:09 Saline Flush FLUSH ASDIRECTED PRN Keep Vein Open Discontinued Medications Generic Name Dose Route Start Last Admin Trade Name Freq PRN Reason Stop Dose Admin Metoclopramide HCl 10 mg 06/01/20 23:09 06/01/20 23:58 Reglan IVPUSH 06/01/20 23:10 10 mg ONETIME ONE Administration Departure - Departure Time of Disposition: 01:22 Disposition: DC/Tfer to Acute Hospital 02 Condition: Good Clinical Impression: CVA (cerebral vascular accident), Swallowing difficulty, Speech abnormality - Discharge Information Referrals: Vladimir Pfeiffer MD [Primary Care Provider] - Forms: ED Department Discharge Sepsis Event Note (ED) - Focused Exam Vital Signs: Vital Signs Temp Pulse Resp BP Pulse Ox 06/02/20 00:56 102 H 18 136/78 94 L 06/02/20 00:41 104 H 131/79 92 L 06/02/20 00:26 112 H 134/73 93 L 06/01/20 23:02 97.2 F 114 H 16 133/84 94 L - My Orders Last 24 Hours: My Active Orders 06/01/20 23:01 Communication Order [RC] STAT 06/01/20 23:09 EKG Documentation Completion [RC] AM Sodium Chloride 0.9% [Saline Flush] 10 ml FLUSH ASDIRECTED PRN Sodium Chloride 0.9% [Saline Flush] 2.5 ml FLUSH ASDIRECTED PRN Saline Lock Insert [OM.PC] Stat 06/01/20 23:48 CORONAVIRUS COVID-19 PCR PHL Stat - Assessment/Plan Last 24 Hours: My Active Orders 06/01/20 23:01 Communication Order [RC] STAT 06/01/20 23:09 EKG Documentation Completion [RC] AM Sodium Chloride 0.9% [Saline Flush] 10 ml FLUSH ASDIRECTED PRN Sodium Chloride 0.9% [Saline Flush] 2.5 ml FLUSH ASDIRECTED PRN Saline Lock Insert [OM.PC] Stat 06/01/20 23:48 CORONAVIRUS COVID-19 PCR [facility] Stat
[2020-06-01] MEDS ORDERED: Sodium Chloride 0.9% 2.5 ML Syringe FLUSH PRN (23:09)
[2020-06-01] MEDS ORDERED: Sodium Chloride 0.9% 10 ML Syringe FLUSH PRN (23:09)
[2020-06-01] MEDS ORDERED: Metoclopramide 10 MG/2 ML SDV IVPUSH ONE (23:09)
[2020-06-01 23:32] LABS: CARBON DIOXIDE,CO2 19.6 mmol/L (21.0-32.0); POTASSIUM,K 4.5 mmol/L (3.5-5.1)
--- NOTE | 2020-06-01 23:33 | CT ---
INDICATION: Aphasia TECHNIQUE: CT Head without i.v. contrast. COMPARISON: 12/08/2019 FINDINGS: CSF space: The lateral, third, and fourth ventricles are enlarged to a degree that is disproportionate to the sulcal enlargement. The appearance is similar to prior exam. Brain: No evidence of mass, acute infarction or hemorrhage is seen. No mass-effect or midline shift is seen. Mild diffuse cortical atrophy is noted. Periventricular white matter low-density is present which may be due to transependymal CSF flow and/or microvascular ischemic changes. Calvarium: Mucosal thickening is seen within the right frontal and right maxillary sinuses. The mastoid air cells are clear. The patient is status post bilateral cataract removal. The calvarium is unremarkable in appearance with no fractures identified. IMPRESSIONS: 1. No evidence of acute infarction, intracranial hemorrhage, or mass-effect seen. 2. The lateral, third, and fourth ventricles are enlarged to a degree that is disproportionate to the sulcal enlargement. The appearance is similar to prior exam. Clinical correlation recommended to exclude Normal Pressure Hydrocephalus. A copy of this report was faxed to Dr. Portillo at approximately 11:32 PM. Dictated by Jonathan Collins MD @ 06/01/2020 11:32:21 PM Please note that all CT scans at this facility use dose modulation, iterative reconstruction, and/or weight-based dosing when appropriate to reduce radiation dose to as low as reasonably achievable. Dictated by: Jonathan Collins MD @ 06/01/2020 23:32:45 (Electronically Signed)
--- NOTE | 2020-06-02 00:45 | CR ---
INDICATION: Choking TECHNIQUE: Chest radiograph 1 view COMPARISON: 12/08/2019 FINDINGS: Mediastinum: The mediastinum is normal in appearance. The heart silhouette is normal in size and morphology. Lung: Patchy perihilar opacities are present with small bilateral pleural effusions. No pneumothorax is identified. Bone and Soft tissue: Unremarkable for age. IMPRESSION: 1. Patchy perihilar opacities are present with small bilateral pleural effusions. Dictated by Jonathan Collins MD @ 06/02/2020 12:43:26 AM Dictated by: Jonathan Collins MD @ 06/02/2020 00:43:33 (Electronically Signed)
== END 2020-06-02 02:00 ==
LOC: MW.ED 22:46
DX: I63.9 Cerebral infarction, unspecified (principal); R13.10 Dysphagia, unspecified; I48.91 Unspecified atrial fibrillation; I13.0 Hypertensive heart and chronic kidney disease with heart failure and stage 1 through stage 4 chronic kidney disease, or unspecified chronic kidney disease; I50.9 Heart failure, unspecified; N18.9 Chronic kidney disease, unspecified; K21.9 Gastro-esophageal reflux disease without esophagitis; F03.90 Unspecified dementia, unspecified severity, without behavioral disturbance, psychotic disturbance, mood disturbance, and anxiety; Z20.828 Contact with and (suspected) exposure to other viral communicable diseases; Z79.899 Other long term (current) drug therapy
CPT/HCPCS: 36415; 70450; 71045; 80053; 82962; 84484; 85025; 85610; 93005; 96374; 99285; J2765; U0002; 93010; 99284